=== PATIENT | female | born 1990 | race Caucasian/White ===

== ENCOUNTER → 2020-11-28 10:41 | Outpatient (BNVA) | payer OTHER, MEDICAID, SELFPAY | PROVIDERS: Family Provider Family Medicine; PCP Obstetrics & Gynecology; Visit Provider Family Medicine | DX: Z20.828 Contact with and (suspected) exposure to other viral communicable diseases (principal) | CPT/HCPCS: 87635 ==

== ENCOUNTER → 2021-09-27 17:21 | Outpatient (BNVA) | payer SELFPAY | PROVIDERS: Family Provider Family Medicine; PCP Obstetrics & Gynecology; Visit Provider Family Medicine | DX: N39.0 Urinary tract infection, site not specified (principal); R11.2 Nausea with vomiting, unspecified | CPT/HCPCS: 81000 ==